=== PATIENT | female | born 1980 | race Caucasian/White ===

== ENCOUNTER 2017-03-16 10:55 | Emergency (ER) | payer OTHER ==
[~2017-03-16] VITALS: Ht 175.3 cm; Wt 83.2 kg
[2017-03-16 11:43] LABS: ADD MIUA? YES; BILIRUBIN NEGATIVE; BLOOD NEGATIVE; COLOR YELLOW ((YELLOW)); GLUCOSE (STRIP) NEGATIVE; KETONES NEGATIVE; LEUKOCYTES SMALL; NITRITE NEGATIVE; PROTEIN (STRIP) NEGATIVE; SPECIFIC GRAVITY 1.019 (1.000-1.030); UROBILINOGEN 0.2 MG/DL (0.2-1.0)
[2017-03-16 11:49] LABS: BACTERIA RARE /HPF; EPITHELIAL CELLS 1+ /HPF; MUCUS TRACE /LPF; RED BLOOD CELLS 0-5 /HPF (0-5)
[2017-03-16] MEDS ORDERED: LEXAPRO10 MG PO (13:13)
[2017-03-16] MEDS ORDERED: FLAGYL500 MG PO (13:13)
[2017-03-16] MEDS ORDERED: LAMICTAL25 MG PO (13:13)
[2017-03-16 13:45] VITALS: BP 135/59
== END 2017-03-16 13:46 | disposition home or self-care (01) ==
LOC: EME 10:55
DX: N76.0 Acute vaginitis (principal); N39.0 Urinary tract infection, site not specified; Z76.0 Encounter for issue of repeat prescription; F17.200 Nicotine dependence, unspecified, uncomplicated
CPT/HCPCS: 81003; 99281; 99284